=== PATIENT | female | born 1975 | race Caucasian/White ===

== ENCOUNTER 2016-11-25 01:54 | Inpatient (IN) | payer BC ==
[2016-11-25] VITALS (38 sets, daily range): BP systolic 97–143; BP diastolic 47–93; PULSE 71–162; TEMP 97.6–99.1
[~2016-11-25] VITALS: Ht 170.2 cm; Wt 131.8 kg
[~2016-11-25 01:54] MED LIST: MOTRIN 800800 MG/TAB PO; PERCOCET 325 MG1 TA2 PO; PRENATAL1 TA1 PO; PROCARDIA XL 6060 MG PO
[2016-11-25] MEDS ORDERED: TYLENOL 500MG500 MG PO (02:31)
[2016-11-25 04:32] LABS: BASO % 0.3 % (0.0-2.0); EOS % 0.1 % (0-4.0); GRAN # 11.3 (1.4-6.5); GRAN % 80.2 % (42.2-75.2); HEMOGLOBIN 13.4 g/dl (12.5-16.0); LYMPH # 2.1 (1.2-3.4); LYMPH % 14.6 % (20.0-51.0); MEAN CELL VOLUME 82 fl (80.0-100.0); MEAN CORPUSCULAR HEMOGLOBIN 28 pg (27.0-31.0); MEAN CORPUSCULAR HGB CONC 34 g/dl (33.0-37.0); MONO # 0.6 (0.1-0.6); MONO % 4.3 % (1.7-9.3); PLATELET COUNT 234 K/mm3 (130-400); RED BLOOD COUNT 4.86 M/mm3 (4.10-5.30); REDCELL DISTRIBUTION WIDTH-CV 15.2 % (11.5-14.5); WHITE BLOOD COUNT 14.1 K/mm3 (4.8-10.8)
[2016-11-26 03:00] VITALS: BP 127/75; PULSE 72; TEMP 97.6
[2016-11-26 07:15] VITALS: BP 116/49; PULSE 70; TEMP 97.4
[2016-11-26] MEDS ORDERED: IBU600 MG PO (08:10)
[2016-11-26] MEDS ORDERED: PERCOCET 325 MG1 TA2 PO (08:10)
== END 2016-11-26 14:05 | disposition home or self-care (01) | DRG 775 ==
LOC: LDRO 01:54 → OB 04:00 → LDR 04:00 → OB 14:10 → LDRO 12-10 16:06
PROVIDERS: Obstetrics & Gynecology
PROC: 10E0XZZ Delivery of Products of Conception, External Approach (ICD-10-PCS; principal; 2016-11-25)
PROC: 0KQM0ZZ Repair Perineum Muscle, Open Approach (ICD-10-PCS; 2016-11-25)
DX: O70.1 Second degree perineal laceration during delivery (principal); O09.523 Supervision of elderly multigravida, third trimester; Z3A.37 37 weeks gestation of pregnancy; Z37.0 Single live birth
CPT/HCPCS: J2590; J2795; J7120

== ENCOUNTER → 2018-06-08 | Outpatient (CLI) | payer BC ==
[~2018-06-08] MED LIST changes: +IBU600 MG PO; +TYLENOL 500MG500 MG PO
== END ==
LOC: MC.RAD 04-25 08:20
DX: Z12.31 Encounter for screening mammogram for malignant neoplasm of breast (principal)

== ENCOUNTER → 2019-06-20 | Outpatient (CLI) | payer BC | LOC: MC.RAD 09:06 | DX: Z12.31 Encounter for screening mammogram for malignant neoplasm of breast (principal) ==

== ENCOUNTER → 2020-06-24 | Outpatient (CLI) | payer BC | LOC: MC.RAD 07:49 | DX: Z12.31 Encounter for screening mammogram for malignant neoplasm of breast (principal); N64.89 Other specified disorders of breast ==

== ENCOUNTER → 2020-07-01 | Outpatient (CLI) | payer BC | LOC: MC.RAD 08:30 | DX: N64.89 Other specified disorders of breast (principal) ==

== ENCOUNTER → 2021-03-17 | Outpatient (CLI) | payer BC | LOC: MC.RAD 13:52 | DX: N64.59 Other signs and symptoms in breast (principal); N64.89 Other specified disorders of breast ==

== ENCOUNTER → 2021-04-02 | Outpatient (CLI) | payer BC | LOC: MC.RAD 08:24 | DX: N64.59 Other signs and symptoms in breast (principal) ==

== ENCOUNTER → 2022-05-25 | Outpatient (CLI) | payer BC | LOC: MC.RAD 04-27 14:45 | DX: Z12.31 Encounter for screening mammogram for malignant neoplasm of breast (principal); N64.9 Disorder of breast, unspecified ==

== ENCOUNTER → 2022-05-27 | Outpatient (CLI) | payer BC | LOC: MC.RAD 13:11 | DX: N60.12 Diffuse cystic mastopathy of left breast (principal) ==

== ENCOUNTER → 2023-07-06 | Outpatient (CLI) | payer BC | LOC: MC.RAD 10:49 | DX: Z12.31 Encounter for screening mammogram for malignant neoplasm of breast (principal); N64.89 Other specified disorders of breast ==

== ENCOUNTER 2024-06-02 09:52 | Day surgery (SDC) | payer BC ==
[~2024-06-02] VITALS: Ht 170.2 cm; Wt 124.9 kg
[~2024-06-02 09:52] MED LIST changes: +LR 1,000 ML IV SCH; +Ondansetron 4 MG/2 ML VIAL IV PRN
[2024-06-02 11:22] VITALS: BP 136/81; PULSE 69; TEMP 97.5
--- NOTE | 2024-06-02 11:27 | NUR ---
Pt arrived with who will be called for discharge picking tech; bowels WNL for the procedure; VSS and RR even and unlabored; reviewed and signed consents, no questions/concerns; reviewed meds/pharm/allergies/history and updated; to place IV and await procedure. RUE restriction noted on yellow sheet.
[2024-06-02] MEDS ORDERED: TAMOXIFEN CITRA20 MG PO (11:29)
[2024-06-02] MEDS ORDERED: ADVIL200 MG PO (11:30)
[2024-06-02] MEDS ORDERED: ALLEGRA 180MG180 MG PO (11:30)
[2024-06-02] MEDS ORDERED: OMEGA-3 FISH1000 MG PO (11:31)
[2024-06-02] MEDS ORDERED: ASPIRIN E.C. 8181 MG PO (11:32)
[2024-06-02] MEDS ORDERED: CALCIUM 600600 MG PO (11:32)
[2024-06-02] MEDS ORDERED: Lidocaine PF 2% (20 MG/ML) 5 ML VIAL ONE (12:35)
[2024-06-02 13:05] VITALS: BP 146/87; PULSE 56
[2024-06-02 13:15] VITALS: BP 144/92; PULSE 58
[2024-06-02 13:30] VITALS: BP 145/97; PULSE 59
--- NOTE | 2024-06-02 13:40 | NUR ---
1305-pt returned via cart to recliner in [facility] 9. A&O. VSS-see flowsheet. Pts VS remain stable. Tolerated oral intake. Dr Downs in to see pt post procedure. IV removed, pressure dressing applied. DC teaching completed, verbalized understanding. After dressing, pt taken via wheelchair to private vehicle for dc home with to drive.
== END 2024-06-02 13:40 | disposition home or self-care (01) ==
LOC: SDCO 09:52
DX: Z12.11 Encounter for screening for malignant neoplasm of colon (principal); Z85.3 Personal history of malignant neoplasm of breast
CPT/HCPCS: J2704; J7120